=== PATIENT | female | born 1980 | race African-American/Black ===

== ENCOUNTER 2019-04-27 17:55 | Emergency (ER) | payer SELFPAY ==
[2019-04-27 18:35] VITALS: BP 132/95
[2019-04-27] MEDS ORDERED: PREDNISONE 20 MG TABLET PO ONE (18:37)
--- NOTE | 2019-04-27 18:40 | ER Document Report ---
HPI - HPI Patient complains to provider of: Skin rash Time Seen by Provider: 04/27/19 18:29 Onset/Duration: Worse Pain Level: Denies Context: Patient presents complaining of pruritic skin rash that developed 3 days ago and has gradually spread. Patient denies any new foods medications or detergents. Patient denies any difficulty breathing. Patient states she did take Benadryl which helps some with the pruritus. Associated Symptoms: Other - Skin rash. denies: Chest pain, Nonproductive cough, Productive cough, Sore throat Exacerbated by: Denies Relieved by: Denies Similar symptoms previously: No Recently seen / treated by doctor: No - ROS ROS below otherwise negative: Yes Systems Reviewed and Negative: Yes All other systems reviewed and negative - RESPIRATORY Respiratory: DENIES: Coughing - GASTROINTESTINAL Gastrointestinal: DENIES: Nausea - REPRODUCTIVE Reproductive: DENIES: : - DERM Skin Color: Normal Skin Problems: Rash Past Medical History - General Information source: Patient - Social History Smoking Status: Never Smoker Frequency of alcohol use: None Drug Abuse: None Occupation: Foodservice Family History: Reviewed & Not Pertinent Patient has suicidal ideation: No Patient has homicidal ideation: No - Medical History Medical History: Negative Renal/ Medical History: Denies: Hx Peritoneal Dialysis Past Surgical History: Reports: Hx Section - x 2 - Immunizations Hx Diphtheria, Pertussis, Tetanus Vaccination: Yes Vertical Provider Document - CONSTITUTIONAL Agree With Documented VS: Yes Exam Limitations: No Limitations General Appearance: WD/WN, No Apparent Distress - INFECTION CONTROL TRAVEL OUTSIDE OF THE [place] IN LAST 30 DAYS: No - HEENT HEENT: Atraumatic, Normal ENT Exam, Normocephalic Notes: No angioedema, no potential airway compromise - NECK Neck: Normal Inspection, Supple. negative: Lymphadenopathy-Left, Lymphadenopathy-Right - RESPIRATORY Respiratory: Breath Sounds Normal, No Respiratory Distress - CARDIOVASCULAR Cardiovascular: Regular Rate, Regular Rhythm, No Murmur - BACK Back: Normal Inspection - MUSCULOSKELETAL/EXTREMETIES Musculoskeletal/Extremeties: AMA RODARTE - NEURO Level of Consciousness: Awake, Alert, Appropriate Motor/Sensory: No Motor Deficit - DERM Integumentary: Warm, Dry, Rash - Patient with maculopapular fine rash to sun exposed areas of upper extremities chest neck and face. Patient with clearing along strap line of tank top Course - Re-evaluation Re-evalutation: 04/27/19 18:38 No concern for anaphylaxis or Vega-Naveed syndrome. Patient denies taking any medications and denies any new foods medications or detergents. Patient does have a rash in a sun exposed pattern. Patient encouraged to wear protective clothing when outside. Discussed worsening symptoms that patient should return immediately for. - Vital Signs Vital signs: Temp Pulse Resp BP Pulse Ox 98.6 F 75 14 132/95 H 100 04/27/19 18:34 04/27/19 18:34 04/27/19 18:34 04/27/19 18:34 04/27/19 18:34 Discharge - Discharge Clinical Impression: Skin rash Condition: Stable Disposition: HOME, SELF-CARE Instructions: Steroid Medication Additional Instructions: Return immediately for any new or worsening symptoms Followup with your primary care provider, call tomorrow to make a followup appointment Wear protective clothing when outside to avoid sun exposure Follow-up with dermatology for any persistent problems Prescriptions: Hydroxyzine HCl [Atarax 25 mg Tablet] 1 - 2 tab PO QID PRN #15 tablet PRN Reason: Prednisone [Deltasone 20 mg Tablet] 3 tab PO DAILY 4 Days tablet Forms: Return to Work Referrals: NINI LUNA DO [ACTIVE STAFF] - Follow up as needed
== END 2019-04-27 18:44 | disposition home or self-care (01) ==
LOC: ER 17:55
DX: R21 Rash and other nonspecific skin eruption (principal); L29.8 Other pruritus
CPT/HCPCS: 99282; J7512

== ENCOUNTER 2019-05-05 15:37 | Emergency (ER) | payer SELFPAY ==
[2019-05-05 15:45] VITALS: BP 133/61
--- NOTE | 2019-05-05 16:13 | ER Document Report ---
HPI - HPI Time Seen by Provider: 05/05/19 15:50 Pain Level: Denies Notes: Patient is an otherwise healthy 38-year-old female presenting to the emergency department chief complaint of scattered rash to her bilateral arms and neck. Patient reports the rash is only where the sun hits her. She also reports that she does not spend much time in the sun. She reports that she was seen in the emergency department for the same symptom approximately 10 days ago. She was g iven prednisone which mostly resolved her symptoms however they returned when she stopped taking the prednisone. She has not had an opportunity to follow-up with dermatology. She has taken Benadryl one time for this. She reports the rash feels like an itchy rash and is not painful. - REPRODUCTIVE Reproductive: DENIES: : Past Medical History - General Information source: Patient - Social History Smoking Status: Never Smoker Frequency of alcohol use: None Drug Abuse: None Lives with: Alone Family History: Reviewed & Not Pertinent Patient has suicidal ideation: No Patient has homicidal ideation: No - Medical History Medical History: Negative Renal/ Medical History: Denies: Hx Peritoneal Dialysis Past Surgical History: Reports: Hx Section - x 2 - Immunizations Hx Diphtheria, Pertussis, Tetanus Vaccination: Yes Vertical Provider Document - CONSTITUTIONAL Notes: PHYSICAL EXAMINATION: GENERAL: Well-appearing, well-nourished and in no acute distress. HEAD: Atraumatic, normocephalic. EYES: Pupils equal round extraocular movements intact, conjunctiva are normal. ENT: Nares patent NECK: Normal range of motion LUNGS: No respiratory distress Musculoskeletal: Normal range of motion NEUROLOGICAL: Normal speech, normal gait. PSYCH: Normal mood, normal affect. SKIN: Fine lacy rash to bilateral upper extremities and neck. - INFECTION CONTROL TRAVEL OUTSIDE OF THE [place] IN LAST 30 DAYS: No Course - Re-evaluation Re-evalutation: Patient will be restarted on prednisone and referred to dermatology. Patient encouraged to also take Pepcid and Benadryl as prescribed. Patient verbalizes understanding and agreement with this plan. The patient's emergency department workup and current diagnosis were explained to the patient and or family. Follow-up instructions were provided. Medications if prescribed were discussed. Instructions for when to return to the emergency department including specific worrisome symptoms were discussed with the patient and/or family. - Vital Signs Vital signs: Temp Pulse Resp BP Pulse Ox 98.1 F 99 16 133/61 H 100 05/05/19 15:40 05/05/19 15:40 05/05/19 15:40 05/05/19 15:40 05/05/19 15:40 Discharge - Discharge Clinical Impression: Rash and nonspecific skin eruption Condition: Stable Disposition: HOME, SELF-CARE Additional Instructions: Please take medication as prescribed. Please take Benadryl 50 mg every 6 hours for the next 2 to 3 days. Please call and make an appointment with either a primary care provider or a desktop support technician. If you do not have a primary care provider there is information for the [facility] on page 2 of your discharge instructions. Try to avoid the sun as I believe this is contributing to the rash that you have. Avoid hot showers. Prescriptions: Famotidine [Pepcid 20 mg Tablet] 20 mg PO BID #14 tablet Prednisone 10 mg PO ASDIR PRN #21 tablet PRN Reason:
== END 2019-05-05 16:18 | disposition home or self-care (01) ==
LOC: ER 15:37
DX: R21 Rash and other nonspecific skin eruption (principal)
CPT/HCPCS: 99282